=== PATIENT | female | born 1990 | race African-American/Black ===

== ENCOUNTER 2018-07-12 15:59 | Emergency (ER) | payer MEDICAID ==
[~2018-07-12] VITALS: Ht 160 cm; Wt 71.2 kg
[2018-07-12 16:02] VITALS: BP 134/68
[2018-07-12] MEDS ORDERED: ALBUTEROL (0.083%) 2.5MG/3ML NEB HHN STA (17:10)
[2018-07-12] MEDS ORDERED: PREDNISONE 20MG TABLET PO STA (17:10)
[2018-07-12] MEDS ORDERED: IPRATROPIUM BROMIDE (0.02%) 0.5MG/2.5ML NEB HHN STA (17:10)
[2018-07-12] MEDS ORDERED: ACETAMINOPHEN WITH CODEINE 300/30MG TABLET PO ONE (17:15)
== END 2018-07-12 18:35 | disposition home or self-care (01) ==
LOC: ER 18:33
DX: J45.901 Unspecified asthma with (acute) exacerbation (principal); M54.5 Low back pain; F17.200 Nicotine dependence, unspecified, uncomplicated; F12.10 Cannabis abuse, uncomplicated; Z88.0 Allergy status to penicillin; Z91.012 Allergy to eggs
CPT/HCPCS: 94644; 99283; J7512; J7611

== ENCOUNTER 2019-12-24 00:56 | Emergency (ER) | payer MEDICAID ==
[~2019-12-24] VITALS: Ht 160 cm; Wt 73.0 kg
[2019-12-24] MEDS ORDERED: KETOROLAC 30MG/ML VIAL IM ONE (02:45)
[2019-12-24 02:52] VITALS: BP 113/60
== END 2019-12-24 03:40 | disposition home or self-care (01) ==
LOC: ER 00:56
DX: S93.401A Sprain of unspecified ligament of right ankle, initial encounter (principal); J45.909 Unspecified asthma, uncomplicated; X50.1XXA Overexertion from prolonged static or awkward postures, initial encounter; Y93.61 Activity, american tackle football; Y92.89 Other specified places as the place of occurrence of the external cause; Y99.8 Other external cause status; Z88.1 Allergy status to other antibiotic agents; Z91.012 Allergy to eggs
CPT/HCPCS: 73610; 73630; 96372; 99284; J1885